=== PATIENT | male | born 1955 | race Caucasian/White ===

== ENCOUNTER 2017-11-06 14:09 | Inpatient (IN) | payer OTHER ==
[~2017-11-06] VITALS: Ht 190.5 cm; Wt 99.8 kg
--- NOTE | 2017-11-06 15:56 | ED GENERAL ADULT ---
History of Present Illness General Chief Complaint: Abdominal Pain/Flank Pain Stated Complaint: ABD PAIN Source: patient Exam Limitations: no limitations Vital Signs & Intake/Output Vital Signs & Intake/Output Vital Signs Date Time Temp Pulse Resp B/P B/P Pulse O2 O2 Flow FiO2 Mean Ox Delivery Rate 11/068 98.0 57 18 107/61 98 Room Air 11/06 1905 97.9 64 16 171/80 97 Room Air 11/06 1700 99.6 68 18 148/78 97 Room Air 11/06 1650 Room Air 11/06 1412 98.9 68 18 187/78 99 Room Air Allergies Coded Allergies: Penicillins (Severe, HIVES 11/06/17) Triage Note: 62 Y/O MALE C/O LLQ PAIN X 1 MONTH, WORSENING X 5 DAYS. PT STATES HE HAS BEEN EXERCISING WITH MACHINE AND ATTRIBUTED PAIN TO "MUSCLES" INITIALLY HOWEVER STATES PAIN IS NOW BECOMMING MORE CONSTANT AND NOW ASSOCIATED WITH NAUSEA/VOMITING THIS AM. PT STATES PAIN IS NONRADIATING. DENIES FEVERS. PT DENIES URINARY SYMPTOMS. DENIES HEMATURIA Triage Nurses Notes Reviewed? yes Onset: Gradual Duration: intermittent Timing: recent history HPI: 62 year old male presents to the Emergency Department for left lower quadrant pain. He states this has been intermittent for the past month. He experienced pain today that induced vomitting and recently has experienced chills. He said initially he thought it was a muscle strain. He saw his primary care doctor. He drank lots of fluids. Then last night became severe. He vomited. (Hipolito Fournier DO) Reconcile Medications No Known Home Medications (Leona DEL ANGEL,Jonel) Past History Travel History Traveled to [place] past 21 day No Medical History Any Pertinent Medical History? see below for history Neurological: NONE EENT: NONE Cardiovascular: NONE Respiratory: NONE Gastrointestinal: NONE Hepatic: NONE Renal: NONE Musculoskeletal: NONE Psychiatric: NONE Endocrine: NONE Blood Disorders: NONE Cancer(s): NONE WOOLEN TESTER/Reproductive: NONE Surgical History Surgical History: retnal surgery Psychosocial History What is your primary language Norwegian Tobacco Use: Current Not Daily Family History Hx Contributory? No (Hipolito Fournier DO) Review of Systems Review of Systems Constitutional: Reports: see HPI, chills. Denies: weakness. EENTM: Denies: blurred vision, double vision. Respiratory: Reports: no symptoms. Denies: short of breath. Cardiovascular: Reports: no symptoms. Denies: chest pain. GI: Reports: see HPI, abdominal pain, vomiting. Denies: diarrhea. Genitourinary: Reports: no symptoms. Musculoskeletal: Reports: no symptoms. Skin: Reports: no symptoms. Neurological/Psychological: Reports: no symptoms. Hematologic/Endocrine: Reports: no symptoms. Immunologic/Allergic: Reports: no symptoms. All Other Systems: Reviewed and Negative (Hipolito Fournier DO) Physical Exam Physical Exam General Appearance: well developed/nourished, alert, awake, mild distress Head: atraumatic, normal appearance Eyes: Bilateral: normal appearance, PERRL, EOMI. Ears, Nose, Throat: normal ENT inspection Neck: normal inspection, full range of motion Respiratory: normal breath sounds, lungs clear Cardiovascular: regular rate/rhythm Peripheral Pulses: 4+ radial (R), 4+ radial (L) Gastrointestinal: normal bowel sounds, soft, tenderness (LLQ MILD) Back: normal inspection, normal range of motion Extremities: normal inspection, no edema Neurologic/Psych: no motor/sensory deficits, awake, alert, oriented x 3 Skin: intact, normal color, warm/dry Core Measures ACS in differential dx? No CVA/TIA Diagnosis: No Sepsis Present: No Sepsis Focused Exam Completed? No (Hipolito Fournier DO) Progress Differential Diagnoses I considered the following diagnoses in my evaluation of the patient: [Renal colic, diverticulitis, pyelonephritis, gastroenteritis, irritable bowel disease, carcinoma] Plan of Care: Orders Procedure Date/time Status Regular Diet 11/07 B Active Patient Data 11/06 2012 Active OXYGEN SETUP (GEN) 11/06 2004 Active Saline Lock 11/06 2004 Active Admit to inpatient 11/06 2004 Active Vital Signs 11/06 2004 Active Activity/Ambulation 11/06 2004 Active Code Status 11/06 2004 Active URINALYSIS 11/06 1731 Complete Intake & Output 11/06 1617 Active TROPONIN LEVEL 11/06 1556 Complete COMPREHENSIVE METABOLIC PANEL 11/06 1556 Complete CBC WITHOUT DIFFERENTIAL 11/06 1556 Complete EKG 11/06 1556 Active Laboratory Tests 11/06/17 1733: Urine Color YEL, Urine Clarity CLEAR, Urine pH 6.0, Ur Specific Bigelow 1.020, Urine Protein NEG, Urine Ketones NEG, Urine Nitrite NEG, Urine Bilirubin NEG, Urine Urobilinogen 0.2, Ur Leukocyte Esterase NEG, Ur Microscopic EXAM NOT REQUIRED, Urine Hemoglobin NEG, Urine Glucose NEG 11/06/17 1640: Anion Gap 14, Estimated GFR 47 L, BUN/Creatinine Ratio 10.0, Glucose 104 H, Calcium 9.6, Total Bilirubin 1.0, AST 30, ALT 35, Alkaline Phosphatase 71, Troponin I < 0.01, Total Protein 7.0, Albumin 4.2, Globulin 2.8, Albumin/ Globulin Ratio 1.5, CBC w Diff NO MAN DIFF REQ, RBC 5.70, MCV 91.1, MCH 31.5 H, MCHC 34.6, RDW 12.9, MPV 8.6, Gran % 77.5 H, Lymphocytes % 14.9 L, Monocytes % 6.9, Eosinophils % 0.6, Basophils % 0.1, Absolute Granulocytes 9.8 H, Absolute Lymphocytes 1.9, Absolute Monocytes 0.9 H, Absolute Eosinophils 0.1, Absolute Basophils 0 Initial ED EKG: NSR (Hipolito Fournier DO) Diagnostic Imaging: Viewed by Me: CT Scan. Discussed w/RAD: CT Scan. Radiology Impression: 1. Moderate left hydronephrosis, with a 5 mm obstructing calculus in the mid left ureter. 2. Colonic diverticulosis. Inflammatory stranding adjacent to the left colon and the diverticulum left colon, possible mild diverticulitis versus secondary to the renal pathology. Clinically correlate. 3. Hepatic steatosis. 4. Enlarged prostate. 5. Severe right hip arthritis. Degenerative changes otherwise as detailed above. (Leona DEL ANGEL,Jonel) Departure Departure Disposition: STILL A PATIENT Condition: Stable Referrals: Alphonse DEL ANGEL,Ralph Gonzalez (PCP/Family) Departure Forms: Customer Survey General Discharge Information Comments PATIENT: DELORIS AMAYA PRESENT AGE: 62 PATIENT ACCOUNT NO: [id number] : 53 LOCATION: [facility] ORDERING PHYSICIAN: Hipolito Fournier DO SERVICE DATE: 11/06/17 EXAM TYPE: CAT - CT ABD & PELVIS W IV CONTRAST EXAMINATION: CT ABDOMEN AND PELVIS WITH CONTRAST CLINICAL INFORMATION: Left lower quadrant pain. Rule out diverticulitis. COMPARISON: None. TECHNIQUE: Multidetector volumetric imaging was performed of the abdomen and pelvis following IV administration of 95 mL of Optiray 320 intravenous contrast. Sagittal and coronal reformatted images were obtained on the technologist's workstation. FINDINGS: LUNG BASES: Mild atelectasis in bilateral lung bases. LIVER, GALLBLADDER, AND BILIARY TREE: Diffuse hepatic steatosis. No focal lesions. No intrahepatic or extrahepatic biliary duct dilatation. The gallbladder is unremarkable with no evidence of radiopaque gallstones, gallbladder wall thickening, or obvious pericholecystic inflammatory changes. PANCREAS: Unremarkable. SPLEEN: Unremarkable. ADRENAL GLANDS: Unremarkable. KIDNEYS AND URETERS: Moderate left hydronephrosis, with an obstructing 5 mm calculus in the left ureter at the level of L4. Mild to moderate left perinephric stranding. No right renal or ureteral calculi. No right-sided hydronephrosis. BLADDER: Within normal limits. GASTROINTESTINAL TRACT: There are diverticuli in the left colon. There is inflammatory stranding adjacent to the left colon and the diverticuli. This may be related to inflammatory stranding secondary to the renal abnormality, but raises a possibility of mild diverticulitis. There is moderate diverticula in the sigmoid colon. No bowel obstruction. The appendix is unremarkable. ABDOMINAL WALL: No significant hernia is appreciated. LYMPH NODES: No pathologically enlarged lymph nodes are seen in the abdomen or pelvis. VASCULAR: Normal caliber aorta. PELVIC VISCERA: Prostate measures 4.7 x 3.8 cm, with foci of coarse calcification. OSSEOUS STRUCTURES: Multilevel facet degeneration of the lumbar spine. Mild anterolisthesis of L4. Mild disc degenerative changes. Severe right hip arthritis. Mild left hip arthritis. No acute osseous abnormality seen. IMPRESSION: 1. Moderate left hydronephrosis, with a 5 mm obstructing calculus in the mid left ureter. 2. Colonic diverticulosis. Inflammatory stranding adjacent to the left colon and the diverticulum left colon, possible mild diverticulitis versus secondary to the renal pathology. Clinically correlate. 3. Hepatic steatosis. 4. Enlarged prostate. 5. Severe right hip arthritis. Degenerative changes otherwise as detailed above. DICTATED BY: Josh Vang MD DATE/TIME DICTATED:11/06/171908 PHOTO RETOUCHER:RIKKI DATE/TIME TRANSCRIBED:11/06/171908 CONFIDENTIAL, DO NOT COPY WITHOUT APPROPRIATE AUTHORIZATION. <Electronically signed in Other Vendor System> SIGNED BY: Josh Vang MD 1930 Patient was signed out to Dr. Delgadillo at [address] scan was pending. (Hipolito Fournier DO) Departure Time of Disposition: 2007 Clinical Impression Primary Impression: Obstructive uropathy Secondary Impressions: Abdominal pain, Acute prerenal azotemia, Diverticulitis Prescriptions: Current Visit Scripts No Known Home Medications Admission Note Spoke With: Stephanie Mcfadden MD Documentation of Exam: Documentation of any treatments & extenuating circumstances including Concerns Regarding Discharge (functional status, medication knowledge or non-compliance, living conditions, etc.) that warrant an admission rather than observation: IV antibiotics IV analgesia IV hydration urology evaluation medication adjustment continuing care discharge planning. (Jonel Delgadillo MD) Critical Care Note Critical Care Note Critical Care Time: non-applicable (Hipolito Fournier DO) Primary Impression: Obstructive uropathy Secondary Impressions: Abdominal pain, Acute prerenal azotemia, Diverticulitis Admission Note Spoke With: Stephanie Mcfadden MD Documentation of Exam: Documentation of any treatments & extenuating circumstances including Concerns Regarding Discharge (functional status, medication knowledge or non-compliance, living conditions, etc.) that warrant an admission rather than observation: IV antibiotics IV analgesia IV hydration urology evaluation medication adjustment continuing care discharge planning. (Jonel Delgadillo MD) Critical Care Note Critical Care Note Critical Care Time: non-applicable (Hipolito Fourneir DO)
[2017-11-06 16:51] LABS: ABSOLUTE BASOPHIL COUNT 0 /CUMM (0.0-0.2); ABSOLUTE EOSINOPHIL COUNT 0.1 /CUMM (0.0-0.7); ABSOLUTE GRANULOCYTE CT 9.8 /CUMM (1.4-6.5); ABSOLUTE LYMPH COUNT 1.9 /CUMM (1.2-3.4); ABSOLUTE MONOCYTE COUNT 0.9 /CUMM (0.10-0.60); BASOPHIL % 0.1 % (0.0-2.0); EOSINOPHIL % 0.6 % (0-5); HEMATOCRIT 51.9 % (42-52); MEAN CORPUSCULAR HGB 31.5 PG (27.0-31.0); MEAN CORPUSCULAR HGB CONC 34.6 G/DL (33.0-37.0); MEAN CORPUSCULAR VOLUME 91.1 FL (80.0-94.0); MEAN PLATELET VOLUME 8.6 FL (7.4-10.4); PLATELET COUNT 178 /CUMM (130-400); RBC DISTRIBUTION WIDTH 12.9 % (11.5-14.5); WHITE BLOOD CELL COUNT 12.7 /CUMM (4.8-10.8)
[2017-11-06 17:03] LABS: GRANULOCYTE % 77.5 % (42.2-75.2)
--- NOTE | 2017-11-06 19:31 | CT SCAN REPORT ---
EXAMINATION: CT ABDOMEN AND PELVIS WITH CONTRAST CLINICAL INFORMATION: Left lower quadrant pain. Rule out diverticulitis. COMPARISON: None. TECHNIQUE: Multidetector volumetric imaging was performed of the abdomen and pelvis following IV administration of 95 mL of Optiray 320 intravenous contrast. Sagittal and coronal reformatted images were obtained on the technologist's workstation. FINDINGS: LUNG BASES: Mild atelectasis in bilateral lung bases. LIVER, GALLBLADDER, AND BILIARY TREE: Diffuse hepatic steatosis. No focal lesions. No intrahepatic or extrahepatic biliary duct dilatation. The gallbladder is unremarkable with no evidence of radiopaque gallstones, gallbladder wall thickening, or obvious pericholecystic inflammatory changes. PANCREAS: Unremarkable. SPLEEN: Unremarkable. ADRENAL GLANDS: Unremarkable. KIDNEYS AND URETERS: Moderate left hydronephrosis, with an obstructing 5 mm calculus in the left ureter at the level of L4. Mild to moderate left perinephric stranding. No right renal or ureteral calculi. No right-sided hydronephrosis. BLADDER: Within normal limits. GASTROINTESTINAL TRACT: There are diverticuli in the left colon. There is inflammatory stranding adjacent to the left colon and the diverticuli. This may be related to inflammatory stranding secondary to the renal abnormality, but raises a possibility of mild diverticulitis. There is moderate diverticula in the sigmoid colon. No bowel obstruction. The appendix is unremarkable. ABDOMINAL WALL: No significant hernia is appreciated. LYMPH NODES: No pathologically enlarged lymph nodes are seen in the abdomen or pelvis. VASCULAR: Normal caliber aorta. PELVIC VISCERA: Prostate measures 4.7 x 3.8 cm, with foci of coarse calcification. OSSEOUS STRUCTURES: Multilevel facet degeneration of the lumbar spine. Mild anterolisthesis of L4. Mild disc degenerative changes. Severe right hip arthritis. Mild left hip arthritis. No acute osseous abnormality seen. IMPRESSION: 1. Moderate left hydronephrosis, with a 5 mm obstructing calculus in the mid left ureter. 2. Colonic diverticulosis. Inflammatory stranding adjacent to the left colon and the diverticulum left colon, possible mild diverticulitis versus secondary to the renal pathology. Clinically correlate. 3. Hepatic steatosis. 4. Enlarged prostate. 5. Severe right hip arthritis. Degenerative changes otherwise as detailed above.
--- NOTE | 2017-11-06 20:42 | History & Physical ---
Marianna Gagei 11/06/172040: General Information and HPI MD Statement: I have seen and personally examined DELORIS AMAYA and documented this H&P. The patient is a 62 year old M who presented with a patient stated chief complaint of []. Source of Information: patient Exam Limitations: no limitations History of Present Illness: This is a 62-year-old male past medical history significant for degenerative arthritis of the right hip presenting to the ER with complaint of non radiating pain in the left lower quadrant for 1 day. He had an episode of vomiting at 6 AM in the morning. The patient had been experiencing chills since last night. However, he did not document any fever. Patient has been having a dull aching pain in the same area for about a month. He has recently started working out and attributed the pain to a muscle strain. He had a similar episode of similar sharp pain 6-7 days ago which resolved spontaneously. The patient experienced another episode of similar pain 3 months ago and was told that he had a kidney stone. This episode of pain resolved spontaneously as well. He reports that he has noticed that his urine has been darker in colour recently. He reports no burning, urgency , or increased frequency of urination. No complaint of pain elsewhere in the belly, diarrhea, constipation, blood in stool , appetite or weight changes. Allergies/Medications Allergies: Coded Allergies: Penicillins (Severe, HIVES 11/06/17) Home Med list No Known Home Medications Past History Travel History Traveled to [place] past 21 day No Medical History Neurological: NONE EENT: NONE Cardiovascular: NONE Respiratory: NONE Gastrointestinal: NONE Hepatic: NONE Renal: NONE Musculoskeletal: NONE Psychiatric: NONE Endocrine: NONE Blood Disorders: NONE Cancer(s): NONE LAW CLERK/Reproductive: NONE Surgical History Surgical History: retnal surgery Past Family/Social History Psychosocial History Where do you live? Home Who Do You Live With? spouse Primary Language: Botswan[place] Smoking Status: Current Some Day Smoker (smokes cigars sometimes) ETOH Use: occasional use Illicit Drug Use: denies illicit drug use Review of Systems Review of Systems Constitutional: Reports: chills. Denies: diaphoresis, fever, weakness, unexplained weight loss. EENTM: Denies: visual changes, eye pain. Cardiovascular: Reports: no symptoms. Respiratory: Reports: no symptoms. GI: Reports: abdominal pain, vomiting. Denies: bloating, constipation, diarrhea, bowel incontinence, melena, nausea, bloody stool. Genitourinary: Denies: dysuria, frequency, hematuria, pain, urgency. Musculoskeletal: Reports: gout, joint pain. Skin: Reports: no symptoms. Neurological/Psychological: Reports: no symptoms. Exam & Diagnostic Data Last 24 Hrs of Vital Signs/I&O Vital Signs Date Time Temp Pulse Resp B/P B/P Pulse O2 O2 Flow FiO2 Mean Ox Delivery Rate 11/06 2351 66 126/76 11/06 2255 97.7 66 18 126/76 97 11/06 2234 58 20 116/66 97 Room Air 11/06 2138 98.0 57 18 107/61 98 Room Air 11/06 1905 97.9 64 16 171/80 97 Room Air 11/06 1700 99.6 68 18 148/78 97 Room Air 11/06 1650 Room Air 11/06 1412 98.9 68 18 187/78 99 Room Air Intake & Output 11/07 0800 11/07 0000 11/06 1600 Intake Total 0 Output Total 0 Balance 0 Intake, Oral 0 Output, Urine 0 Patient 220 lb 220 lb Weight Weight Standing Scale Reported by Patient Measurement Method Physical Exam General Appearance Alert, Oriented X3, Cooperative, No Acute Distress Skin No Rashes, No Breakdown, No Significant Lesion Skin Temp/Moisture Exam: Warm/Dry Sepsis Skin Exam (color): Flushed HEENT Atraumatic, PERRLA Neck Supple Cardiovascular Regular Rate, Normal S1, Normal S2, No Murmurs Lungs Clear to Auscultation Abdomen Soft, No tenderness reported presently on examination Neurological Normal Speech, Strength at 5/5 X4 Ext Extremities Normal Pulses Assessment/Plan Assessment: This is a 62 yo gentleman presenting to the ED with pain in the LLQ of the abdomen. He endorses an episode of vomiting and chills accompanying the pain. He has had multiple episodes of similar pain in the past which resolved spontaneously. On examination, vitals of the patient are Temp 98.0; Pulse: 57; RR: 18; BP: 107/61; Pulse ox: 98%. No tenderness appreciated on palpation. Labs of the patient are significant for WBC of 12.7, Hb of 18, S.Creatinine of 1.5 and BUN of 15. CT scan showed moderate left hydronephrosis with a 5mm calculus obstructing the mid left ureter along with evdence of colonic diverticulosis with mild diverticulitis. PLAN: We will admit the patient to the GM floor. -Continue Ceftriaxone 1000mg iv daily, with careful monitoring in view of patient's Penicillin allergy -Urine cultures -IV fluids -Follow up on BUN and S.Creatinine -Urology cosult for obstructive uropathy DVT PROPHYLAXIS: Heparin Sodium CODE STATUS: FULL CODE As Ranked By This Provider Problem List: 1. Abdominal pain 2. Renal colic 3. Acute prerenal azotemia 4. Diverticulitis Core Measures/Misc (01/01) Acute Coronary Syndrome ACS Diagnosis: No Congestive Heart Failure Congestive Heart Failure Diagnosis No Cerebrovascular Accident CVA/TIA Diagnosis: No VTE (View Protocol) VTE Risk Factors Age>40 No Mechanical VTE Prophylaxis d/t N/A MechProphylax Ordered No VTE Pharm Prophylaxis d/t NA PharmProphylax ordered Sepsis (View protocol) Sepsis Present: No If YES complete Sepsis Event Note If YES complete Sepsis Event Note Mikey Olson 11/06/17 2322: Core Measures/Misc (01/01) Sepsis (View protocol) If YES complete Sepsis Event Note If YES complete Sepsis Event Note Resident Review Statement Resident Statement: examined this patient, discussed with university intern, agreed with university intern, reviewed images Other Findings: 62-year-old male past medical history significant for degenerative arthritis of the right hip with HPI noted as above with ROS negative for n/v, diarrhea, bowel or bladder symptoms. Vitals in ED stable, Examination significant for mild discomfort on palpation of suprapubic area, no CVA tenderness noted. Rest of examination unremarkable Labs significant for PRATIK with creatinine 1.5, WBC 12.7, afebrile. CT shows stone plus stranding of left colon which may be diverticulitis vs local effect from stone. prob list: 1. Left ureteral calculus 2. Left hydronephrosis secondary to ureteral calculus 3. PRATIK Plan: admit to gen med floor, vitals per protocol, will start IV ceftriaxone and flomax gentle IVF will keep NPO after midnight for possible urological intervention DVTppx sc heparin to start tommorrow afternoon in the event pt goes for procedure urology consult placed full code. Stephanie Mcfadden MD 11/06/17 2332: Core Measures/Misc (01/01) Sepsis (View protocol) If YES complete Sepsis Event Note If YES complete Sepsis Event Note Attending MD Review Statement Attending Statement Attending MD Statement: examined this patient, discuss w/resident/PA/CALCULUS TEACHER, agreed w/resident/PA/CALCULUS TEACHER, reviewed EMR data (avail) Attending Assessment/Plan: 62M no PMH with intermittent LLQ pain for 1 month, became severe last night, vomited, came to ER and was found to have obstructing left ureteral stone. Pain now improved, no fever, chills, or any systemic symptoms. Denies dysuria/ hematuria. Labs show PRATIK with creatinine 1.5, WBC 12.7, afebrile. CT shows stone plus stranding of left colon which may be diverticulitis vs local effect from stone. No GI symptoms. 1. Left ureteral calculus 2. Left hydronephrosis secondary to ureteral calculus 3. PRATIK Will admit to medicine, Ceftriaxone, cultures, Flomax, urology consult, IV hydration, monitor renal function, DVT PPx.
[2017-11-06 22:55] VITALS: BP 126/76
--- NOTE | 2017-11-06 23:33 | Admission Certification ---
Admission Certification Certification Statement - As attending physician, I certify that at the time of - admission, based on clinical presentation, severity of - symptoms, need for further diagnostic testing and - therapeutic interventions, and risk of adverse outcomes - without in-hospital treatment, in my clinical assessment, - this patient requires an acute hospital stay for a minimum - of two nights or longer. I have also considered psychsocial - factors such as support system, advanced age, financial - issues, cognitive issues, and failed out-patient treatments, - past re-admission history, safety of patient, and lack of - compliance as applicable. Specific rationale supporting this admission is: Obstructing left renal stone with signs of UTI and PRATIK
[2017-11-07 06:20] VITALS: BP 100/66
--- NOTE | 2017-11-07 07:56 | Cons- Urology ---
General Information and HPI Consulting Request Date of Consult: 11/07/17 Requested By: Stephanie Mcfadden MD Reason for Consult: Abd pain due to 5 mm L proximal ureteral stone Source of Information: patient Exam Limitations: no limitations History of Present Illness: This patient presented to the ER with L side abd pain, nausea and vomiting. CT scan shows a 5 mm L proximal ureteral stone with moderate L hydronephrosis. He denies fever, chills or gross hematuria. A couple of months ago he had an episode of L flank pain which was self-limite. There is no hx of urinary stones. He is healthy Allergies/Medications Allergies: Coded Allergies: Penicillins (Severe, HIVES 11/06/17) Home Med List: No Known Home Medications Current Medications: Current Medications Sig/Guille Start time Last Medication Dose Route Stop Time Status Admin Acetaminophen 1,000 MG ONCE ONE 11/06 1914 DC 11/06 IV 11/06 Acetaminophen 0 .STK-MED ONE 11/06 190 DC IV Ceftriaxone Sodium 1,000 MG DAILY 11/07 09 IV Ciprofloxacin 400 MG ONCE ONE 11/06 2014 DC 11/06 IV 11/06 Heparin Sodium 5,000 UNIT Q8 11/08 1999 AC (Porcine) SC Ketorolac 0 .STK-MED ONE 11/06 2006 DC Tromethamine .ROUTE Ketorolac 30 MG ONCE ONE 11/07 1999 DC 11/06 Tromethamine IV 11/06 Metronidazole 500 MG ONCE ONE 11/06 N/A 1 UNIT IV 11/06 Morphine Sulfate 2 MG Q4-6 PRN PRN 11/06 2229 IV Morphine Sulfate 0 .STK-MED ONE 11/07 1999 DC .ROUTE Morphine Sulfate 4 MG ONCE ONE 11/07 1999 DC 11/06 IV 11/06 Oxycodone HCl 5 MG Q6 11/06 2229 11/07 PO 0545 Sodium Chloride 1,000 ML .Q10H 11/06 2229 11/06 IV 235 Sodium Chloride 1,000 ML BOLUS ONE 11/06 2014 DC 11/06 IV 11/06 Tamsulosin HCl 0.4 MG DAILY 11/06 2345 11/06 PO 2351 Past History Medical History Neurological: NONE EENT: NONE Cardiovascular: NONE Respiratory: NONE Gastrointestinal: NONE Hepatic: NONE Renal: NONE Musculoskeletal: NONE Psychiatric: NONE Endocrine: NONE Blood Disorders: NONE Cancer(s): NONE MANAGEMENT PLANNER/Reproductive: NONE Surgical History Pertinent Surgical History: LEFT retinal surgery Psychosocial History Where Do You Live? Home Who Do You Live With? spouse Primary Language: Hungarian Smoking Status: Current Some Day Smoker (smokes cigars sometimes) ETOH Use: occasional use Illicit Drug Use: denies illicit drug use Exam & Diagnostic Data Vital Signs and I&O Vital Signs Date Time Temp Pulse Resp B/P B/P Pulse O2 O2 Flow FiO2 Mean Ox Delivery Rate 11/07 0620 98.3 58 18 100/66 96 Room Air 11/06 2351 66 126/76 11/06 2255 97.7 66 18 126/76 97 11/06 2234 58 20 116/66 97 Room Air 11/06 2138 98.0 57 18 107/61 98 Room Air 11/06 1905 97.9 64 16 171/80 97 Room Air 11/06 1700 99.6 68 18 148/78 97 Room Air 11/06 1650 Room Air 11/06 1412 98.9 68 18 187/78 99 Room Air Intake & Output 11/07 0800 11/07 0000 11/06 1600 11/06 0800 11/06 0000 11/05 1600 Intake Total 600 0 Output Total 600 0 Balance 0 0 Intake, IV 600 Intake, Oral 0 Output, Urine 600 0 Patient 220 lb 220 lb 220 lb Weight Weight Reported by Patient Standing Scale Reported by Patient Measurement Method Comfortable Back: No CVA tenderness Abd Soft and non tender Genitalia: Normal male Laboratory Tests 11/07 11/06 0607 1733 Chemistry Sodium Pending Potassium Pending Chloride Pending Carbon Dioxide Pending Anion Gap Pending BUN Pending Creatinine Pending BUN/Creatinine Ratio Pending Hematology CBC w Diff Pending WBC Pending RBC Pending Hgb Pending Hct Pending MCV Pending MCH Pending MCHC Pending RDW Pending Plt Count Pending MPV Pending Urines Urine Color (YEL,AMB,STR) YEL Urine Clarity (CLEAR) CLEAR Urine pH (5.0 - 8.0) 6.0 Ur Specific [place] (1.001 - 1.035) 1.020 Urine Protein (NEG,<30 MG/DL) NEG Urine Ketones (NEG) NEG Urine Nitrite (NEG) NEG Urine Bilirubin (NEG) NEG Urine Urobilinogen (0.1 - 1.0 EU/dl) 0.2 Ur Leukocyte Esterase (NEG) NEG Ur Microscopic EXAM NOT REQUIRED Urine Hemoglobin (NEG) NEG Urine Glucose (N MG/DL) NEG 11/06 1640 Chemistry Sodium (137 - 145 mmol/L) 138 Potassium (3.5 - 5.1 mmol/L) 4.2 Chloride (98 - 107 mmol/L) 102 Carbon Dioxide (22 - 30 mmol/L) 22 Anion Gap (5 - 16) 14 BUN (9 - 20 mg/dL) 15 Creatinine (0.7 - 1.2 mg/dL) 1.5 H Estimated GFR (>60 ml/min) 47 L BUN/Creatinine Ratio (7 - 25 %) 10.0 Glucose (65 - 99 mg/dL) 104 H Calcium (8.4 - 10.2 mg/dL) 9.6 Total Bilirubin (0.2 - 1.3 mg/dL) 1.0 AST (17 - 59 U/L) 30 ALT (21 - 72 U/L) 35 Alkaline Phosphatase (< 127 U/L) 71 Troponin I (<0.11 ng/ml) < 0.01 Total Protein (6.3 - 8.2 g/dL) 7.0 Albumin (3.5 - 5.0 g/dL) 4.2 Globulin (1.9 - 4.2 gm/dL) 2.8 Albumin/Globulin Ratio (1.1 - 2.2 %) 1.5 Hematology CBC w Diff NO MAN DIFF REQ WBC (4.8 - 10.8 /CUMM) 12.7 H RBC (4.70 - 6.10 /CUMM) 5.70 Hgb (14.0 - 18.0 G/DL) 18.0 Hct (42 - 52 %) 51.9 MCV (80.0 - 94.0 FL) 91.1 MCH (27.0 - 31.0 PG) 31.5 H MCHC (33.0 - 37.0 G/DL) 34.6 RDW (11.5 - 14.5 %) 12.9 Plt Count (130 - 400 /CUMM) 178 MPV (7.4 - 10.4 FL) 8.6 Gran % (42.2 - 75.2 %) 77.5 H Lymphocytes % (20.5 - 51.1 %) 14.9 L Monocytes % (1.7 - 9.3 %) 6.9 Eosinophils % (0 - 5 %) 0.6 Basophils % (0.0 - 2.0 %) 0.1 Absolute Granulocytes (1.4 - 6.5 /CUMM) 9.8 H Absolute Lymphocytes (1.2 - 3.4 /CUMM) 1.9 Absolute Monocytes (0.10 - 0.60 /CUMM) 0.9 H Absolute Eosinophils (0.0 - 0.7 /CUMM) 0.1 Absolute Basophils (0.0 - 0.2 /CUMM) 0 Assessment/Plan Assessment/Plan Imp: 1. 5 mm L proximal ureteral stone. This has at least a 50% chance to pass spontaneously Plan: 1. Strain urine 2. Would d/c abx and urine analysis is not c/w infection 3. Would attempt to transition to po pain meds and would give pain meds prn only not on a scheduled basis. 4. Continue flomax 5. Discussed options of conservative management vs ureteroscopy and laser litho. He prefer conservative management if possible. Would observe today and if pain well controlled with po meds could be discharged tomorrow and followed in office. If pain not controlled may need intervention on this admission Consult Acknowledgment - Thank you for your consult request.
--- NOTE | 2017-11-07 08:19 | PN- Housestaff ---
See Addendum Subjective Follow-up For: Nephrolithiasis, PRATIK Subjective: Seen and examined at bedside. Patient states that yesterday, he had some nausea around 6 AM, and then some abdominal pain that radiated towards the flank. Patient states that he has never had this pain before. Patient states the last time has been in the hospital was when he was 4 years old, however he has been at [place] multiple times for his parents. Patient denies any fever/chills/ night sweats/chest pain/urinary symptoms/lower extremity edema Review of Systems Constitutional: Reports: see HPI. Objective Last 24 Hrs of Vital Signs/I&O Vital Signs Date Time Temp Pulse Resp B/P B/P Pulse O2 O2 Flow FiO2 Mean Ox Delivery Rate 11/07 0937 58 98/80 11/07 0620 98.3 58 18 100/66 96 Room Air 11/06 2351 66 126/76 11/06 2255 97.7 66 18 126/76 97 11/06 2234 58 20 116/66 97 Room Air 11/06 2138 98.0 57 18 107/61 98 Room Air 11/06 1905 97.9 64 16 171/80 97 Room Air 11/06 1700 99.6 68 18 148/78 97 Room Air 11/06 1650 Room Air 11/06 1412 98.9 68 18 187/78 99 Room Air Intake & Output 11/07 1600 11/07 0800 11/07 0000 Intake Total 600 0 Output Total 600 0 Balance 0 0 Intake, IV 600 Intake, Oral 0 Output, Urine 600 0 Patient 220 lb 220 lb Weight Weight Reported by Patient Standing Scale Measurement Method Physical Exam General Appearance: Alert, Oriented X3, Cooperative, No Acute Distress Skin: No Rashes Skin Temp/Moisture Exam: Warm/Dry Cardiovascular: Regular Rate, Normal S1, Normal S2 Lungs: Clear to Auscultation, Normal Air Movement Abdomen: Soft, No Tenderness, no suprapubic tenderness/no cva tenderness Neurological: Normal Speech, Sensation Intact Current Medications: Current Medications Sig/Guille Start time Last Medication Dose Route Stop Time Status Admin Acetaminophen 650 MG Q4P PRN 11/07 1015 AC PO Acetaminophen 1,000 MG ONCE ONE 11/06 1914 DC 11/06 IV 11/06 Acetaminophen 0 .STK-MED ONE 11/06 1904 DC IV Ceftriaxone Sodium 1,000 MG DAILY 07/24 0900 CAN IV Ciprofloxacin 400 MG ONCE ONE 11/06 2014 DC 11/06 IV 11/07 2015 2152 Heparin Sodium 5,000 UNIT Q8 11/08 1999 AC (Porcine) SC Ketorolac 0 .STK-MED ONE 11/06 2006 DC Tromethamine .ROUTE Ketorolac 30 MG ONCE ONE 11/07 1999 DC 11/06 Tromethamine IV 11/06 Metronidazole 500 MG ONCE ONE 11/06 2014 [place] 11/06 N/A 1 UNIT IV 11/06 Morphine Sulfate 2 MG Q4-6 PRN PRN 11/06 2229 AC IV Morphine Sulfate 0 .STK-MED ONE 11/07 1999 DC .ROUTE Morphine Sulfate 4 MG ONCE ONE 11/07 1999 DC 11/06 IV 11/06 Oxycodone HCl 5 MG Q6P PRN 11/07 1011 AC PO Oxycodone HCl 5 MG Q6 11/06 2229 [place] 11/07 PO 0545 Sodium Chloride 1,000 ML .Q10H 11/06 2229 AC 11/07 IV 0937 Sodium Chloride 1,000 ML BOLUS ONE 11/06 2014 DC 11/06 IV 11/06 Tamsulosin HCl 0.4 MG DAILY 11/06 2345 AC 11/07 PO 0937 Last 24 Hrs of Lab/William Results Last 24 Hrs of Labs/Mics: Laboratory Tests 11/07/17 0607: Anion Gap 9, Estimated GFR 41 L, BUN/Creatinine Ratio 8.8, CBC w Diff NO MAN DIFF REQ, RBC 4.73, MCV 90.7, MCH 32.2 H, MCHC 35.5, RDW 12.7, MPV 9.6, Gran % 58.6, Lymphocytes % 28.1, Monocytes % 10.2 H, Eosinophils % 2.7, Basophils % 0.4, Absolute Granulocytes 5.8, Absolute Lymphocytes 2.8, Absolute Monocytes 1.0 H, Absolute Eosinophils 0.3, Absolute Basophils 0 11/06/17 1733: Urine Color YEL, Urine Clarity CLEAR, Urine pH 6.0, Ur Specific [place] 1.020, Urine Protein NEG, Urine Ketones NEG, Urine Nitrite NEG, Urine Bilirubin NEG, Urine Urobilinogen 0.2, Ur Leukocyte Esterase NEG, Ur Microscopic EXAM NOT REQUIRED, Urine Hemoglobin NEG, Urine Glucose NEG 11/06/17 1640: Anion Gap 14, Estimated GFR 47 L, BUN/Creatinine Ratio 10.0, Glucose 104 H, Calcium 9.6, Total Bilirubin 1.0, AST 30, ALT 35, Alkaline Phosphatase 71, Troponin I < 0.01, Total Protein 7.0, Albumin 4.2, Globulin 2.8, Albumin/ Globulin Ratio 1.5, CBC w Diff NO MAN DIFF REQ, RBC 5.70, MCV 91.1, MCH 31.5 H, MCHC 34.6, RDW 12.9, MPV 8.6, Gran % 77.5 H, Lymphocytes % 14.9 L, Monocytes % 6.9, Eosinophils % 0.6, Basophils % 0.1, Absolute Granulocytes 9.8 H, Absolute Lymphocytes 1.9, Absolute Monocytes 0.9 H, Absolute Eosinophils 0.1, Absolute Basophils 0 Assessment/Plan Assessment: Mr. Ramsey is a 62-year-old man with no significant past medical history who is here for a 1 day history of flank pain radiating to the groin, nausea, vomiting, with a 5 mm stone in the mid left ureter, admitted for nephrolithiasis as well as PRATIK with most recent creatinine being 1.7 which is an increase from his baseline 0.9. #Nephrolithiasis pass stones spontaneously, no current operative intervention, but will need if pain is not controlled and stone is unable to pass. hydronephrosis. #Acute kidney injury tomorrow morning will consult nephrology #Diverticulosisstable stranding adjacent to the left colon, read and interpreted as possible mild diverticulitis versus reaction to the renal pathology. Given the anatomic location, current abdominal pain, no bloody stools or stooling complaints, and patient being afebrile without leukocytosis, IV ceftriaxone was discontinued, and patient will be monitored. DVT prophylaxis IV access Tolerating regular diet Full code Dispositionto home when medically stable Problem List: 1. Renal colic 2. PRATIK (acute kidney injury) Pain Ratin Pain Location: na Pain Goal: Pain 4 or less Pain Plan: PRN meds Tomorrow's Labs & Rationales: BEP trend creatinine
[2017-11-07 08:27] LABS: ABSOLUTE BASOPHIL COUNT 0 /CUMM (0.0-0.2); ABSOLUTE EOSINOPHIL COUNT 0.3 /CUMM (0.0-0.7); ABSOLUTE GRANULOCYTE CT 5.8 /CUMM (1.4-6.5); ABSOLUTE LYMPH COUNT 2.8 /CUMM (1.2-3.4); BASOPHIL % 0.4 % (0.0-2.0); EOSINOPHIL % 2.7 % (0-5); GRANULOCYTE % 58.6 % (42.2-75.2); MEAN CORPUSCULAR HGB 32.2 PG (27.0-31.0); MEAN CORPUSCULAR HGB CONC 35.5 G/DL (33.0-37.0); MEAN CORPUSCULAR VOLUME 90.7 FL (80.0-94.0); MEAN PLATELET VOLUME 9.6 FL (7.4-10.4); PLATELET COUNT 140 /CUMM (130-400); RBC DISTRIBUTION WIDTH 12.7 % (11.5-14.5); RED BLOOD CELL CT 4.73 /CUMM (4.70-6.10)
[2017-11-07 08:37] LABS: HEMATOCRIT 42.9 % (42-52)
[2017-11-07 14:28] VITALS: BP 116/62
[2017-11-07 22:09] VITALS: BP 150/80
[2017-11-08 06:20] VITALS: BP 128/66
--- NOTE | 2017-11-08 07:55 | PN- Housestaff ---
See Addendum Subjective Follow-up For: Nephrolithiasis, PRATIK Subjective: Patient seen and examined at bedside. Patient states that he slept very well last night. Patient also states that he did not have any pain last night. Patient denies any nausea or vomiting. Patient states that his bowel movements have been less than satisfactory. Patient states that he still has not passed the stone. Patient states he doctor Dr. Wallace, said that he would follow outpatient for the stone if it had not passed. Patient asked about possibly being discharged today. Patient was told that his creatinine had bumped up yesterday, and we are awaiting results today for his creatinine. Patient was told that if his creatinine trended down today, he likely could go today. Denies fevers/chills/night sweats/chest pain/abdominal pain/urinary symptoms/lower extremity edema Review of Systems Constitutional: Reports: see HPI. Objective Last 24 Hrs of Vital Signs/I&O Vital Signs Date Time Temp Pulse Resp B/P B/P Pulse O2 O2 Flow FiO2 Mean Ox Delivery Rate 11/08 0620 97.8 65 18 128/66 96 Room Air 11/07 2209 98.3 70 18 150/80 97 11/07 1428 98.5 63 18 116/62 99 Room Air 11/07 0937 58 98/80 Intake & Output 11/08 1600 11/08 0800 11/08 0000 Intake Total 800 1025 Output Total 2000 225 Balance -1200 800 Intake, IV 800 800 Intake, Oral 225 Output, Urine 1999 225 Patient 220 lb Weight Weight Reported by Patient Measurement Method Physical Exam General Appearance: Alert, Oriented X3, Cooperative, No Acute Distress Skin: No Rashes Skin Temp/Moisture Exam: Warm/Dry Cardiovascular: Regular Rate, Normal S1, Normal S2 Lungs: Clear to Auscultation, Normal Air Movement Abdomen: Soft, No Tenderness, no suprapubic tenderness, no CVA tenderness Neurological: Sensation Intact Extremities: No Edema, Normal Pulses Current Medications: Current Medications Sig/Guille Start time Last Medication Dose Route Stop Time Status Admin Acetaminophen 650 MG Q4P PRN 11/07 1015 AC PO Heparin Sodium 5,000 UNIT Q8 11/08 1999 AC (Porcine) SC Morphine Sulfate 2 MG Q4-6 PRN PRN 11/06 2230 AC IV Oxycodone HCl 5 MG Q6P PRN 11/07 1011 AC PO Oxycodone HCl 5 MG Q6 11/06 2230 DC 11/07 PO 0545 Patient Medication 1 ED ONE ONE 11/07 1700 DC Teaching ED 11/07 1701 Senna 187 MG AT BEDTIME 11/08 2100 AC PO Sodium Chloride 1,000 ML .Q10H 11/06 2230 AC 11/07 IV 2302 Tamsulosin HCl 0.4 MG DAILY 11/06 2345 AC 11/07 PO 0937 Last 24 Hrs of Lab/William Results Last 24 Hrs of Labs/Mics: Laboratory Tests 11/08/17 0720: Sodium Pending, Potassium Pending, Chloride Pending, Carbon Dioxide Pending, Anion Gap Pending, BUN Pending, Creatinine Pending, BUN/Creatinine Ratio Pending Assessment/Plan Assessment: Mr. Ramsey is a 62-year-old man with no significant past medical history who is here for a 1 day history of flank pain radiating to the groin, nausea, vomiting, with a 5 mm stone in the mid left ureter, admitted for nephrolithiasis as well as PRATIK with most recent creatinine being 1.7 which is an increase from his baseline 0.9. #Nephrolithiasis pass stones spontaneously, no current operative intervention, but will need if pain is not controlled and stone is unable to pass. hydronephrosis. #Acute kidney injury in 1-3 days for repeat measure. consult nephrology #Diverticulosisstable stranding adjacent to the left colon, read and interpreted as possible mild diverticulitis versus reaction to the renal pathology. Given the anatomic location, no abdominal pain, no bloody stools or stooling complaints, and patient being afebrile without leukocytosis, IV ceftriaxone was discontinued on 11/07, and patient will be monitored. DVT prophylaxis IV access Tolerating regular diet Full code Dispositionto home when medically stable Problem List: 1. Renal colic 2. PRATIK (acute kidney injury) Pain Ratin Pain Location: na Pain Goal: Pain 4 or less Pain Plan: pathway Tomorrow's Labs & Rationales: na Discharge Plan Discharge Disposition: home Stable for Discharge? Yes Anticipated Discharge (Day): today
--- NOTE | 2017-11-08 08:02 | Discharge Summary ---
See Addendum Visit Information Visit Dates Admission Date: 11/06/17 Discharge Date: 11/08/17 Hospital Course Course Attending Physician: Mateus Christensen MD Primary Care Physician: Alphonse DEL ANGEL,Ralph Gonzalez Other Care Providers: Coco DEL ANGEL, Urology Hospital Course: 62-year-old male past medical history significant for degenerative arthritis of the right hip with HPI noted as above with ROS negative for n/v, diarrhea, bowel or bladder symptoms. Vitals in ED stable, Examination significant for mild discomfort on palpation of suprapubic area, no CVA tenderness noted. Rest of examination unremarkable Labs significant for PRATIK with creatinine 1.5, WBC 12.7, afebrile. CT shows stone plus stranding of left colon which may be diverticulitis vs local effect from stone. Patient was started on ceftriaxone and flomax in the ED, admitted to general medicine for management of PRATIK and 5 mm stone. Urology saw pt and recommended a trial of passage, no operative intervention unless pain is severe or inability to pass stone. Ceftriaxone was discontinued as there was no systemic signs, no leukocytosis, no fevers, no suspicion of infection. Pt did not pass stone overnight, creatinine stable at 1.7. Pt was kept on continuous IVF, tolerated PO intake, did not have any pain/nausea/vomiting. Urology saw patient again and recommended outpatient followup. Creatinine was stable. Pt asked to be discharged, was given script to follow up with primary for monitoring of creatinine, and was told that if his creatinine increased, or if he develops any urinary symptoms, to medially come back to the emergency department for workup. Patient was also instructed to follow-up with his urologist, Dr. Wallace outpatient for management of the stone. Patient was also instructed to check his urine to see if there is any passage of stone. Patient is given strict return precautions, verbalized understanding of the treatment, was discharged without incident. Hospital course without complications. Allergies: Coded Allergies: Penicillins (Severe, HIVES 11/06/17) Significant Procedures: CT ABD/PELVIS 11/06/17 CT ABDOMEN AND PELVIS WITH CONTRAST CLINICAL INFORMATION: Left lower quadrant pain. Rule out diverticulitis. COMPARISON: None. TECHNIQUE: Multidetector volumetric imaging was performed of the abdomen and pelvis following IV administration of 95 mL of Optiray 320 intravenous contrast. Sagittal and coronal reformatted images were obtained on the technologist's workstation. FINDINGS: LUNG BASES: Mild atelectasis in bilateral lung bases. LIVER, GALLBLADDER, AND BILIARY TREE: Diffuse hepatic steatosis. No focal lesions. No intrahepatic or extrahepatic biliary duct dilatation. The gallbladder is unremarkable with no evidence of radiopaque gallstones, gallbladder wall thickening, or obvious pericholecystic inflammatory changes. PANCREAS: Unremarkable. SPLEEN: Unremarkable. ADRENAL GLANDS: Unremarkable. KIDNEYS AND URETERS: Moderate left hydronephrosis, with an obstructing 5 mm calculus in the left ureter at the level of L4. Mild to moderate left perinephric stranding. No right renal or ureteral calculi. No right-sided hydronephrosis. BLADDER: Within normal limits. GASTROINTESTINAL TRACT: There are diverticuli in the left colon. There is inflammatory stranding adjacent to the left colon and the diverticuli. This may be related to inflammatory stranding secondary to the renal abnormality, but raises a possibility of mild diverticulitis. There is moderate diverticula in the sigmoid colon. No bowel obstruction. The appendix is unremarkable. ABDOMINAL WALL: No significant hernia is appreciated. LYMPH NODES: No pathologically enlarged lymph nodes are seen in the abdomen or pelvis. VASCULAR: Normal caliber aorta. PELVIC VISCERA: Prostate measures 4.7 x 3.8 cm, with foci of coarse calcification. OSSEOUS STRUCTURES: Multilevel facet degeneration of the lumbar spine. Mild anterolisthesis of L4. Mild disc degenerative changes. Severe right hip arthritis. Mild left hip arthritis. No acute osseous abnormality seen. IMPRESSION: 1. Moderate left hydronephrosis, with a 5 mm obstructing calculus in the mid left ureter. 2. Colonic diverticulosis. Inflammatory stranding adjacent to the left colon and the diverticulum left colon, possible mild diverticulitis versus secondary to the renal pathology. Clinically correlate. 3. Hepatic steatosis. 4. Enlarged prostate. 5. Severe right hip arthritis. Degenerative changes otherwise as detailed above. Pertinent Lab Results: Creatinine on admission 11/06 1.5 Creatinine 11/07 1.7 Creatinine 11/08 1.7 Disposition Summary Disposition Principal Diagnosis: #Nephrolithiasis #PRATIK (baseline creatinine 0.9; currently 1.7) #Diverticulosis (stable) Additional Diagnosis: as above Discharge Disposition: home or self care Discharge Instructions General Discharge Information Code Status: Full Code Patient's Diet: As tolerated Patient's Activity: As tolerated Follow-Up Instructions/Appts: - Please follow up with your urologist Dr. Sepulveda within 1-2 weeks of discharge. - Please follow up with your primary care physician within 1-2 weeks of discharge. Inform your primary care physician of this admission to [facility]. - Continue your current medications per discharge instructions. - Please watch for these problems: Fever, Chills, Nausea, Vomiting, Shortness of Breath, Productive Cough, Chest Pain/Discomfort, Abdominal Pain, Active Bleeding or Bloody urine/stool. Medications at Discharge Discharge Medications: Start taking the following new medications: Tamsulosin HCl (Flomax) 0.4 MG CAP.ER.24H 0.4 Milligram ORAL DAILY Qty = 30 No Refills Instructions: . Comments: TAKE UNTIL PASSAGE OF STONE Oxycodone HCl/Acetaminophen (Percocet 5-325 MG Tablet) 5 MG-325 MG TABLET 1 Tablet ORAL TWICE DAILY as needed for PAIN Qty = 10 No Refills Instructions: . Copies To: Alphonse DEL ANGEL,Ralph Gonzalez
[2017-11-08 08:49] VITALS: BP 120/72
[2017-11-08] MEDS ORDERED: FLOMAX0.4 M1 PO ×2 (09:58→10:11)
[2017-11-08] MEDS ORDERED: PERCOCET 5-3251 EACH PO ×2 (10:00→10:11)
--- NOTE | 2017-11-08 10:04 | Patient Discharge Instructions ---
Discharge Instructions General Discharge Information You were seen/treated for: NEPHROLITHIASIS, PRATIK You had these procedures: CT ABDOMEN PELVIS Watch for these problems: HEMATURIA, FEVERS, CHILLS Special Instructions: -PLEASE FOLLOW UP WITH YOUR PCP IN 1-3 DAYS TO HAVE YOUR CREATININE MONITORED -PLEASE FOLLOW UP WITH DR CARDENAS, UROLOGY WITHIN A WEEK OR IF PAIN PERSISTS WITH NO PASSAGE OF STONE -PLEASE CONTINUE TO CHECK YOUR URINE FOR PASSAGE OF THE STONE Diet Continue normal diet: Yes Activity Full Activity/No Limits: Yes Acute Coronary Syndrome Inclusion Criteria At DC or during hospital stay patient has or had the following: ACS DIAGNOSIS No Discharge Core Measures Meds if any: Prescribed or Continued at Discharge Meds if any: NOT Prescribed or Continued at Discharge Congestive Heart Failure Inclusion Criteria At DC or during hospital stay patient has or had the following: CHF DIAGNOSIS No Discharge Core Measures Meds if any: Prescribed or Continued at Discharge Meds if any: NOT Prescribed or Continued at Discharge Cerebrovascular accident Inclusion Criteria At DC or during hospital stay patient has or had the following: CVA/TIA Diagnosis No Discharge Core Measures Meds if any: Prescribed or Continued at Discharge Meds if any: NOT Prescribed or Continued at Discharge Venous thromboembolism Inclusion Criteria VTE Diagnosis No VTE Type NONE VTE Confirmed by (Test) NONE Discharge Core Measures - Per Current guidelines, there needs to be overlap - treatment for the first 5 days of Warfarin therapy. - If discharged on Warfarin prior to 5 days of - overlap therapy, the patient will need to be - assessed for post discharge needs including - *Post discharge parental anticoagulation - *Warfarin and/or parental anticoagulation education - *Follow up date to check INR post discharge At least 5 days overlap therapy as Inpatient No Meds if any: Prescribed or Continued at Discharge Note: Overlap Therapy is Warfarin and Anticoagulant Meds if any: NOT Prescribed or Continued at Discharge
== END 2017-11-08 12:30 | DRG 694 ==
LOC: ERH 14:09 → 2NA 20:05 → ERHI 20:05 → ENRESERV 21:06 → ENTRNSPT 22:31 → EDTRNSPTSTS 22:33 → EDTRNSPT 22:33 → 2NA 22:39 → CMPTRNSPT 22:50 → 2NA 11-07 07:56 → ENPENDDIS 11-08 12:23 → 2NA 11-08 12:30
PROVIDERS: Emergency Medicine; Internal Medicine
DX: N13.2 Hydronephrosis with renal and ureteral calculous obstruction (principal); N20.1 Calculus of ureter; Z72.0 Tobacco use; N17.9 Acute kidney failure, unspecified; K57.90 Diverticulosis of intestine, part unspecified, without perforation or abscess without bleeding; M16.11 Unilateral primary osteoarthritis, right hip; Z88.0 Allergy status to penicillin; F17.290 Nicotine dependence, other tobacco product, uncomplicated
CPT/HCPCS: 2NASP; 36415; 36592; 74177; 81003; 82436; 93005; 93010; 96374; 96375; J0131; J0696; J0744; J1644; J1885